=== PATIENT | male | born 1950 | race Caucasian/White ===

== ENCOUNTER 2016-10-03 09:43 | Inpatient (IN) ==
[2016-10-07] MEDS ORDERED: predniSONE 10 MG TABLET PO SCH (17:20)
[2016-10-07] MEDS ORDERED: D5% in Water 1,000 ML IVC PRN (18:21)
[2016-10-07] MEDS ORDERED: Dextrose Gel 15 GM PO PRN ×2 (18:21)
[2016-10-07] MEDS ORDERED: *HR* Dextrose 50 % in Water (Syg) 50 ML SYRINGE IVP PRN (18:21)
[2016-10-07] MEDS ORDERED: Nitroglycerin 0.4 MG TAB.SUBL SL PRN (18:28)
[2016-10-07] MEDS ORDERED: Gabapentin 300 MG CAPSULE PO PRN (18:28)
[2016-10-07] MEDS ORDERED: Ipratropium/Albuterol Neb 3 ML IH PRN (18:28)
[2016-10-07] MEDS ORDERED: NON-FORMULARY MEDICATION 1 EACH EACH (Oxygen [Oxygen] 4 L) SCH (18:30)
[2016-10-07] MEDS ORDERED: Insulin LISPRO 300 UNITS/3 ML VIAL SQ ONE (18:54)
[2016-10-07] MEDS: Insulin LISPRO 300 UNITS/3 ML VIAL SQ SCH ×2 (18:57→22:10)
[2016-10-07] MEDS ORDERED: Insulin DETEMIR 100 UNIT/ML per UNIT SQ ONE ×2 (21:00)
[2016-10-07] MEDS: Furosemide 20 MG TABLET PO SCH (22:08)
[2016-10-07] MEDS: Colchicine 0.6 MG TABLET PO SCH (22:08)
[2016-10-07] MEDS: Budesonide/Formoterol 160/4.5 MDI IH SCH (22:10)
[2016-10-07 23:54] LABS: Bilirubin,Urine Negative (Negative); Blood,Urine Negative (Negative); Clarity,Urine Slightly Cloudy (Clear); Color,Urine Yellow (Yellow); Glucose,Urine (UA) 500 mg/dL (Normal); Ketones,Urine Negative (Negative); Leukocyte Esterase,Urine Negative (Negative); Nitrite,Urine Negative (Negative); PH,Urine 6.5 pH Units (5.0-8.0); Protein,Urine Negative (Neg-Trace); Specific Gravity,Urine 1.015 (1.010-1.025); Urobilinogen,Urine Normal (Normal)
[2016-10-08 05:39] LABS: BUN/Creatinine Ratio 26 (6-26); Blood Urea Nitrogen 24 mg/dL (8-26); Calcium 9.5 mg/dL (8.6-10.8); Carbon Dioxide 32 mEq/L (19-29); Chloride 98 mEq/L (98-109); Glucose 166 mg/dL (70-99); Osmolality,Calculated 306 (280-300); Potassium 3.9 mEq/L (3.5-4.5); Sodium 144 mEq/L (136-145); eGFR For African Americans > 60 (> 60); eGFR For Non-African Americans > 60 (> 60)
[2016-10-08 05:44] LABS: Basophils % 0.3 %; Eosinophils % 0.3 %; Hematocrit 35.8 % (37.5-50.1); Hemoglobin 11.3 g/dL (12.9-16.9); Immature Granulocytes % 2.3 % (0-4); Lymphocytes # 1.3 K/mcL (0.6-4.6); Lymphocytes % 19.6 %; Mean Corpuscular HGB Conc 31.6 g/dL (31.6-35.5); Mean Corpuscular Hemoglobin 27.6 pg (28.0-33.3); Mean Corpuscular Volume 87.3 fL (83.0-100.0); Mean Platelet Volume 10.8 fL (9.4-12.4); Monocytes # 0.4 K/mcL (0.0-1.3); Monocytes % 5.6 %; Neutrophils # 4.6 K/mcL (1.6-8.9); Platelet Count 305 K/mcL (140-400); Red Cell Distribution Width 17.7 % (11.5-14.5); Segmented Neutrophils % 71.9 %
[2016-10-08] MEDS: *HR* Enoxaparin 30 MG/0.3 ML SYRINGE SQ SCH (05:48)
[2016-10-08] MEDS: Insulin DETEMIR 100 UNIT/ML per UNIT SQ SCH ×2 (07:49→21:03)
[2016-10-08] MEDS: Isosorbide MONOnitrate (24 HR) 30 MG TAB.ER.24H PO SCH (07:50)
[2016-10-08] MEDS: Colchicine 0.6 MG TABLET PO SCH ×2 (07:50→21:02)
[2016-10-08] MEDS: metOLazone 5 MG TABLET PO SCH (07:50)
[2016-10-08] MEDS: predniSONE 10 MG TABLET PO SCH (07:50)
[2016-10-08] MEDS: Furosemide 20 MG TABLET PO SCH ×3 (07:51→21:01)
[2016-10-08] MEDS: Aspirin Enteric Coated 81 MG Tablet PO SCH (07:51)
[2016-10-08] MEDS: *HR* GlipiZIDE 5 MG TABLET PO SCH (07:51)
[2016-10-08] MEDS: *HR* Metformin 500 MG TABLET PO SCH ×2 (07:51→17:07)
[2016-10-08] MEDS: Diltiazem CD (24hr) 120 MG CAPSULE PO SCH (07:51)
[2016-10-08] MEDS: Budesonide/Formoterol 160/4.5 MDI IH SCH ×2 (07:56→21:04)
[2016-10-08] MEDS: Insulin LISPRO 300 UNITS/3 ML VIAL SQ SCH ×7 (07:57→21:02)
[2016-10-08] MEDS: *HR* OxyCODONE Immed Rel 5 MG TABLET PO PRN ×4 (08:31→21:01)
--- NOTE | 2016-10-08 11:25 | Internal Med History&Physical ---
Date of Encounter: 10/08/16 Time of Encounter: 15:45 Assessment and Plan (1) Physical deconditioning Current visit: Yes Status: Acute Here for pt,ot,rt (2) Diabetes mellitus type 2, uncontrolled Current visit: No Status: Chronic he is noncompliant at home with his insulin. he will often miss doses and estr[place] not follow a diet is on Levemir here with Humulin N check sliding scales every before meals and daily at bedtime and give sliding scale high dose as needed Qualifiers: Diabetes mellitus long term care phlebotomist insulin use: with long term care phlebotomist use Qualified Code( s): E11.65 - Type 2 diabetes mellitus with hyperglycemia; Z79.4 - intermediate ( current) use of insulin (3) DVT prophylaxis Current visit: No Status: Acute lovenox (4) CAD (coronary artery disease) Current visit: No Status: Chronic We will continue on his home medications he chronically has angina. Qualifiers: Coronary Disease-Associated Artery/Lesion type: [place] artery [place] vs. transplanted heart: [place] heart Associated angina: with stable angina Qualified Code(s): I25.118 - Atherosclerotic heart disease of [place] coronary artery with other forms of angina pectoris (5) Asthma with COPD (chronic obstructive pulmonary disease) Current visit: No Status: Chronic continue the oxygen, nebs, inhalers. he is on a prednisone taper (6) CHF (congestive heart failure) Current visit: No Status: Acute will continue with the diuretics. he takes lisinopril and metoprolol Qualifiers: Congestive heart failure type: combined Congestive heart failure chronicity : chronic Qualified Code(s): I50.42 - Chronic combined systolic (congestive) and diastolic (congestive) heart failure (7) Anemia Current visit: No Status: Acute stable will continue to follow continue the iron Qualifiers: Anemia type: unspecified type Qualified Code(s): D64.9 - Anemia, unspecified (8) HTN (hypertension) Current visit: No Status: Chronic will continue his home medication Qualifiers: Hypertension type: essential hypertension Qualified Code(s): I10 - Essential (primary) hypertension (9) Angina pectoris Current visit: No Status: Acute (10) Hyperlipidemia Current visit: No Status: Chronic Qualifiers: Hyperlipidemia type: mixed hyperlipidemia Qualified Code(s): E78.2 - Mixed hyperlipidemia (11) Atrial fibrillation Current visit: No Status: Chronic he remains in chronic afib despite the ablation. on metoprolol and diltiazem. he had a gi bleed on anticoagulation Qualifiers: Atrial fibrillation type: chronic Qualified Code(s): I48.2 - Chronic atrial fibrillation (12) Morbid obesity with BMI of 45.0-49.9, adult Current visit: No Status: Chronic (13) Gouty arthritis Current visit: No Status: Acute he continues iwth the allopurinol and now is on a prednisone taper and oxycodone Internal Medicine - H&P: HPI Chief complaint: weak Admitted From: Hospital to Hospital Transfer Plans for Post Hospital Care: Home History of present illness: Mr. Anguiano is a 66 year old male The past medical history of CHF COPD gout type 2 diabetes that is uncontrolled presents to [facility] for rehabilitation from [facility]. He was hospitalized there for an acute gout attack that made it impossible for him to walk he could not get up he got deconditioning he became very weak is afraid she could not care for him at home she was worried he would fall he was having a lot of difficulty getting up and ambulating. He has come here for rehabilitation. He is short of breath on oxygen chronically his breathing is not too bad right now he always has angina that has not been too bad right now his gout is getting better today it has improved his feet are still sore but he can move his left arm much better than he could prior. Is looking forward to getting home. He does not have a cough that he usually does but there is not one now. Sitting on the edge of his bed he is alert he is dressed. Past Med Surg Social Fam HX - Past Medical History Medical history: arthritis (osteo and gout), atrial fibrillation (s/p ablation but afib persists), CHF, COPD, coronary artery disease, diabetes, GERD, GI bleed (on xarelto), hyperlipidemia, hypertension, myocardial infarction, osteoporosis, venous stasis, valvular heart disease, other (anemia) Psychiatric history: anxiety, depression - Past Surgical History Surgical History: angioplasty/stent (stents 2008, 2006), cataract (left 09/2013) , herniorrhaphy (bilateral inguinal 1969, umbilical 08/22), knee replacement ( left 2005, right 2006), other (cardiac ablation for afib 01/09/16, colonoscopy , 08/01/12) - Social History Smoking Status: Never smoker Smokeless Tobacco Status: No Alcohol use: none Drug use: none - Family History Sister Living Status: Still Living Mother Living Status: Still Living Hx Family Cardiac Disorders: Yes (htn,cad, lipid) Hx Family Neurologic Disorders: Yes (alzheimers) Father Living Status: Age at : 86 Cause of : aneurism Hx Family Cardiac Disorders: Yes (cad) Hx Family Respiratory Disorders: Yes Hx Family Cancer: Yes (colon) Hx Family GI Disorders: Yes Hx Family Endocrine Disorder: No Hx Family Medical Disorders: Yes (aneurism) Internal Medicine - H&P: Meds Insulin Human Regular [HumuLIN R] 40 unit SQ 0800,1700 #0 MDD With Breakfast and Dinner 09/12/15 [History] Isosorbide MONOnitrate (24 HR) [Imdur] 30 mg PO DAILY #0 09/12/15 [History] Ferrous Sulfate [Iron Supplement] 325 mg PO TID 12/25/15 [History] Aspirin [Lo-Dose Aspirin EC] 81 mg PO DAILY 03/22/16 [History] Glucagon,Human Recombinant [Glucagon Emergency Kit] 1 mg SQ DAILY PRN 03/22/16 [ History] Insulin NPH/REG 70/30 [HumuLIN 70/30 VIAL] 80 unit SQ BIDWM 03/22/16 [History] Budesonide/Formoterol 160/4.5 [Symbicort 160/4.5] 2 puff IH BIDR 05/17/16 [ History] Diltiazem CD (24hr) [Cardizem CD] 120 mg PO DAILY 05/17/16 [History] Gabapentin [Neurontin] 300 mg PO TID PRN 05/17/16 [History] Metoprolol [Lopressor] 50 mg PO BID 05/17/16 [History] Nitroglycerin [Nitrostat] 0.4 mg SL Q5M PRN 05/17/16 [History] Pantoprazole Sodium [Protonix] 40 mg PO DAILY 05/17/16 [History] Potassium Chloride [K-Tab ER] 20 meq PO TID 05/17/16 [History] glipiZIDE [Glipizide] 10 mg PO DAILY 05/17/16 [History] metFORMIN [Glucophage] 500 mg PO BIDWM 05/17/16 [History] metOLazone [Metolazone] 10 mg PO DAILY 05/17/16 [History] Buspirone HCl [Buspar] 10 mg PO BID 08/06/16 [History] Montelukast Sodium [Singulair] 10 mg PO HS 08/06/16 [History] Oxygen 4 l .ROUTE AD 09/18/16 [History] Atorvastatin [Lipitor] 80 mg PO HS tablet 09/21/16 [Rx] Lisinopril [Zestril] 2.5 mg PO DAILY 09/28/16 [History] Albuterol Sulfate [Albuterol Inhaler] 2 puff IH Q4H 09/29/16 [History] Ipratropium/Albuterol Neb [Duoneb] 3 ml IH Q4HR PRN 09/29/16 [History] Allopurinol [Zyloprim 100 MG] 100 mg PO DAILY #30 tablet 10/07/16 [Rx] Colchicine [Colcrys] 0.6 mg PO BID #30 tablet 10/07/16 [Rx] Furosemide [Lasix] 80 mg PO TID 10/07/16 [History] Insulin DETEMIR [Levemir] 40 unit SQ BID 10/07/16 [History] Insulin LISPRO [HumaLOG] 10 units SQ TIDWM 10/07/16 [History] OxyCODONE Immed Rel [Roxicodone 5 MG] 5 mg PO Q4H PRN #18 tablet 10/07/16 [Rx] predniSONE [PredniSONE] See Taper PO TAPER #9 tablet 10/07/16 [Rx] Allergies No Known Allergies Allergy (Verified 10/07/16 17:05) All Systems PM: A 10-system review of systems was performed and is negative for pertinent findings except as documented above in the HPI. - Constitutional Constitutional: fatigue, weakness (generalized), no fever(s), no falls - EENT Eyes: no change in vision - Cardiovascular Cardiovascular ROS IM: chest pain, dyspnea (it is better than prior), irregular heart rhythm, lightheadedness, palpitations - Respiratory Respiratory: cough (barely any just once lastnight, he usually has one), no wheezing - Gastrointestinal Gastrointestinal: bloating, no hematochezia, no melena, no nausea, no vomiting ( but he usually will have emesis and nausea) - Genitourinary Genitourinary ROS male: no dysuria, no hematuria - Musculoskeletal Musculoskeletal ROS IM: muscle weakness, numbness (chronic of his feet) - Neurological Neurological ROS: abnormal gait (hard to walk) - Constitutional Vitals: Temp Pulse Resp BP Pulse Ox 98.3 F 68 16 133/75 96 10/08/16 07:00 10/08/16 07:00 10/08/16 07:00 10/08/16 07:00 10/08/16 07:00 General appearance: Present: A&O X 3. Absent: no acute distress - Head Head exam: Present: atraumatic, normocephalic - Neck Neck exam general surgery: Present: supple, trachea midline. Absent: lymphadenopathy - Respiratory Respiratory exam: Present: wheezes (baseline) - Cardiovascular Cardiovascular exam: Present: irregular rhythm - GI/Abdominal GI/Abdominal exam: Present: distended, normal bowel sounds. Absent: tenderness , no peritoneal signs - Extremities Exam Extremities exam: Present: pedal edema (but improved over baseline. he has kenyatta hose on), tenderness (ankles bilateral), warm - Skin Skin exam: Present: dry, warm. Absent: rash Internal Med - H&P Results - Labs CBC & Chem 7: 10/08/16 05:20 10/08/16 05:20 Labs: Short CBC 10/08/16 Range/Units 05:20 WBC 6.4 (4.3-11.1) K/mcL Hgb 11.3 L (12.9-16.9) g/dL Hct 35.8 L (37.5-50.1) % Plt Count 305 (140-400) K/mcL Neutrophils # 4.6 (1.6-8.9) K/mcL BMP 10/08/16 05:20 Sodium 144 Potassium 3.9 Chloride 98 Carbon Dioxide 32 H BUN 24 Creatinine 0.94 Glucose 166 H Calcium 9.5 Urine 10/07/16 Range/Units 19:25 Urine Color Yellow (Yellow) Urine Clarity Slightly Cloudy A (Clear) Urine pH 6.5 (5.0-8.0) pH Units Ur Specific [place] 1.015 (1.010-1.025) Urine Protein Negative (Neg-Trace) mg/dL Urine Glucose (UA) 500 H (Normal) mg/dL - VTE Documentation of Mechanical Device: Graduated compression elastic hosiery
[2016-10-09] MEDS: *HR* Enoxaparin 30 MG/0.3 ML SYRINGE SQ SCH (06:29)
[2016-10-09] MEDS: Insulin LISPRO 300 UNITS/3 ML VIAL SQ SCH ×7 (07:58→20:46)
[2016-10-09] MEDS: *HR* GlipiZIDE 5 MG TABLET PO SCH (08:14)
[2016-10-09] MEDS: Colchicine 0.6 MG TABLET PO SCH ×2 (08:14→20:44)
[2016-10-09] MEDS: Isosorbide MONOnitrate (24 HR) 30 MG TAB.ER.24H PO SCH (08:14)
[2016-10-09] MEDS: Diltiazem CD (24hr) 120 MG CAPSULE PO SCH (08:14)
[2016-10-09] MEDS: *HR* OxyCODONE Immed Rel 5 MG TABLET PO PRN (08:14)
[2016-10-09] MEDS: Furosemide 20 MG TABLET PO SCH ×3 (08:15→20:48)
[2016-10-09] MEDS: predniSONE 10 MG TABLET PO SCH (08:15)
[2016-10-09] MEDS: *HR* Metformin 500 MG TABLET PO SCH ×2 (08:15→17:15)
[2016-10-09] MEDS: Budesonide/Formoterol 160/4.5 MDI IH SCH ×2 (08:15→20:47)
[2016-10-09] MEDS: metOLazone 5 MG TABLET PO SCH (08:15)
[2016-10-09] MEDS: Aspirin Enteric Coated 81 MG Tablet PO SCH (08:15)
[2016-10-09] MEDS: Insulin DETEMIR 100 UNIT/ML per UNIT SQ SCH ×2 (08:16→20:44)
--- NOTE | 2016-10-09 11:58 | Internal Med Progress Note ---
Date of Encounter: 10/09/16 Time of Encounter: 13:33 - Assessment and plan (1) Physical deconditioning Current Visit: Yes Status: Acute Assessment and plan: here for pt,ot,rt. improving likely d/c tomorrow (2) Diabetes mellitus type 2, uncontrolled Current Visit: No Status: Chronic Assessment and plan: his sugars are better with watching his diet and taking his insulin. he misses a lot of doses at home Qualifiers: Diabetes mellitus complication detail: with nephropathy Diabetes mellitus assistant terminal manager insulin use: with mcc use Qualified Code(s): E11.21 - Type 2 diabetes mellitus with diabetic nephropathy; E11.65 - Type 2 diabetes mellitus with hyperglycemia; Z79.4 - half-way (current) use of insulin (3) DVT prophylaxis Current Visit: No Status: Acute Assessment and plan: lovenox and kenyatta hose and ambulation (4) CAD (coronary artery disease) Current Visit: No Status: Chronic Assessment and plan: stable continue his oxygen and home imdur, metoprolol, acei, asa Qualifiers: Coronary Disease-Associated Artery/Lesion type: [place] artery [place] vs. transplanted heart: [place] heart Associated angina: with stable angina Qualified Code(s): I25.118 - Atherosclerotic heart disease of [place] coronary artery with other forms of angina pectoris (5) Asthma with COPD (chronic obstructive pulmonary disease) Current Visit: No Status: Chronic Assessment and plan: stable. cont nebs as needed, oxygen, mid. he is weaning down off the steroids for his gout (6) CHF (congestive heart failure) Current Visit: No Status: Acute Assessment and plan: he is doing better with watching his i and o and limiting fluids in the hospital. he is also getting all his medication, the betablocker, acei, lasix and metolglizone Qualifiers: Congestive heart failure type: combined Congestive heart failure chronicity : chronic Qualified Code(s): I50.42 - Chronic combined systolic (congestive) and diastolic (congestive) heart failure (7) Anemia Current Visit: No Status: Acute Assessment and plan: stable, continue the iron tid Qualifiers: Anemia type: unspecified type Qualified Code(s): D64.9 - Anemia, unspecified (8) HTN (hypertension) Current Visit: No Status: Chronic Assessment and plan: stable on home medication Qualifiers: Hypertension type: essential hypertension Qualified Code(s): I10 - Essential (primary) hypertension (9) Angina pectoris Current Visit: No Status: Acute (10) Hyperlipidemia Current Visit: No Status: Chronic Assessment and plan: continue statin Qualifiers: Hyperlipidemia type: mixed hyperlipidemia Qualified Code(s): E78.2 - Mixed hyperlipidemia (11) Atrial fibrillation Current Visit: No Status: Chronic Assessment and plan: s/p ablation but still in afib. on diltiazem, metoprolol, asa. he is not on other anticoagulation due to a gi bleed with it Qualifiers: Atrial fibrillation type: chronic Qualified Code(s): I48.2 - Chronic atrial fibrillation (12) Morbid obesity with BMI of 45.0-49.9, adult Current Visit: No Status: Chronic Assessment and plan: he is not compliant with diet and excercise (13) Gouty arthritis Current Visit: No Status: Acute Assessment and plan: improving. he is weaning the steroids. he is taking the allopurinol and colchicine - Subjective Interval history: he has been walking with the walker. will fatigue when he is not using it. went up 4 stairs. likely d/c tomorrow. his sugars are running well with watching his diet here and not missing medication doses. also the same with the chf. gout is better. ambulating better. breathing better, - Constitutional Vitals: Temp Pulse Resp BP Pulse Ox 98.8 F 82 18 115/71 96 10/09/16 07:08 10/09/16 07:08 10/09/16 07:08 10/09/16 07:08 10/09/16 07:08 General appearance: Present: A&O X 3. Absent: no acute distress - Head Head exam: Present: atraumatic, normocephalic - Neck Neck exam general surgery: Present: supple, trachea midline. Absent: tenderness - Respiratory Respiratory exam: Present: prolonged expiratory phase - Cardiovascular Cardiovascular exam: Present: irregular rhythm - GI/Abdominal GI/Abdominal exam: Present: distended, normal bowel sounds, no peritoneal signs. Absent: guarding, tenderness - Extremities Exam Extremities exam: Present: pedal edema (much improved with the kenyatta hose on) - Skin Skin exam: Present: dry, warm Internal Medicine: Result - Labs CBC & Chem 7: 10/08/16 05:20 10/08/16 05:20 - VTE Documentation of Mechanical Device: Graduated compression elastic hosiery Consult Discharge Plan - Plan Referrals: Mildred Ernandez MD [Primary Care Provider] -
--- NOTE | 2016-10-09 12:20 | Physical Med Progress Note ---
Date of Encounter: 10/09/16 Time of Encounter: 12:18 Physical Medicine-PN: Subj Interval history: PMR PCC Note Patient admitted following bilateral tka. He does well ambulating with a walker -his endurance is limited without a walker. He is able to ambulate 250 feet before he becomes fatigued. He is doing well with ADLs. Working on energy conservation. Patient is currently set up for all ADLs. He will require a shower seat at discharge. Plan for discharge to home 10/10/16 with home health PT. - Constitutional Vitals: Vital Signs Temp Pulse Resp BP Pulse Ox 10/09/16 07:08 98.8 F 82 18 115/71 96 10/09/16 04:00 98.2 F 70 20 102/65 94 10/08/16 19:17 97.5 F L 81 20 108/70 94 Intake and Output 10/08/16 10/09/16 10/09/16 23:59 07:59 15:59 Intake Total 240 / 240 300 / 300 730 / 730 Output Total 1250 / 1250 450 / 450 Balance -1010 / -1010 -150 / -150 730 / 730 Intake: Oral 240 / 240 300 / 300 730 / 730 Output: Urine 1250 / 1250 450 / 450 Other: Meal Dinner Breakfast Percent of Meal Consumed 90% 100% # Voids 1 1 1 Weight 122.062 kg Blood Glucose* 263 89 111 Patient Weight 10/09/16 23:59 Weight 122.062 kg Physical Medicine-PN: Obj Data - Labs CBC & Chem 7: 10/08/16 05:20 10/08/16 05:20 Labs: Laboratory Results - last 24 hr 10/08/16 10/08/16 10/08/16 07:31 11:04 16:35 POC Glucose 166 H 154 H 214 H 10/08/16 10/09/16 10/09/16 20:08 06:38 11:29 POC Glucose 263 H 89 111 H - VTE Documentation of Mechanical Device: Graduated compression elastic hosiery Consult Discharge Plan - Plan Referrals: Mildred Ernandez MD [Primary Care Provider] -
--- NOTE | 2016-10-09 13:41 | Physician Discharge Referral ---
Home Health/Hosp Referral Info Transfer to: Home Health Provider in Charge Post Discharge: PCP - Diagnosis (1) Physical deconditioning Priority: Primary Status: Acute (2) Diabetes mellitus type 2, uncontrolled Priority: Secondary Status: Chronic (3) DVT prophylaxis Priority: Secondary Status: Acute (4) CAD (coronary artery disease) Priority: Secondary Status: Chronic (5) Asthma with COPD (chronic obstructive pulmonary disease) Priority: Secondary Status: Chronic (6) CHF (congestive heart failure) Priority: Secondary Status: Acute (7) Anemia Priority: Secondary Status: Acute (8) HTN (hypertension) Priority: Secondary Status: Chronic (9) Angina pectoris Priority: Secondary Status: Acute (10) Hyperlipidemia Priority: Secondary Status: Chronic (11) Atrial fibrillation Priority: Secondary Status: Chronic (12) Morbid obesity with BMI of 45.0-49.9, adult Priority: Secondary Status: Chronic (13) Gouty arthritis Priority: Secondary Status: Acute - Respiratory Orders Smoking Cessation: Smoking cessation has been advised. For more information, call the [place] Tobacco Quit Line at 3-057-TRWV-NOW. - Transfer Medications Home Medications: Insulin Human Regular [HumuLIN R] 40 unit SQ 0800,1700 #0 MDD With Breakfast and Dinner 09/12/15 [History] Isosorbide MONOnitrate (24 HR) [Imdur] 30 mg PO DAILY #0 09/12/15 [History] Ferrous Sulfate [Iron Supplement] 325 mg PO TID 12/25/15 [History] Aspirin [Lo-Dose Aspirin EC] 81 mg PO DAILY 03/22/16 [History] Insulin NPH/REG 70/30 [HumuLIN 70/30 VIAL] 80 unit SQ BIDWM 03/22/16 [History] Budesonide/Formoterol 160/4.5 [Symbicort 160/4.5] 2 puff IH BIDR 05/17/16 [ History] Diltiazem CD (24hr) [Cardizem CD] 120 mg PO DAILY 05/17/16 [History] Gabapentin [Neurontin] 300 mg PO TID PRN 05/17/16 [History] Metoprolol [Lopressor] 50 mg PO BID 05/17/16 [History] Nitroglycerin [Nitrostat] 0.4 mg SL Q5M PRN 05/17/16 [History] Pantoprazole Sodium [Protonix] 40 mg PO DAILY 05/17/16 [History] Potassium Chloride [K-Tab ER] 20 meq PO TID 05/17/16 [History] glipiZIDE [Glipizide] 10 mg PO DAILY 05/17/16 [History] metFORMIN [Glucophage] 500 mg PO BIDWM 05/17/16 [History] metOLazone [Metolazone] 10 mg PO DAILY 05/17/16 [History] Buspirone HCl [Buspar] 10 mg PO BID 08/06/16 [History] Montelukast Sodium [Singulair] 10 mg PO HS 08/06/16 [History] Oxygen 4 l .ROUTE AD 09/18/16 [History] Atorvastatin [Lipitor] 80 mg PO HS tablet 09/21/16 [Rx] Lisinopril [Zestril] 2.5 mg PO DAILY 09/28/16 [History] Albuterol Sulfate [Albuterol Inhaler] 2 puff IH Q4H 09/29/16 [History] Ipratropium/Albuterol Neb [Duoneb] 3 ml IH Q4HR PRN 09/29/16 [History] Allopurinol [Zyloprim 100 MG] 100 mg PO DAILY #30 tablet 10/07/16 [Rx] Colchicine [Colcrys] 0.6 mg PO BID #30 tablet 10/07/16 [Rx] Furosemide [Lasix] 80 mg PO TID 10/07/16 [History] Insulin LISPRO [HumaLOG] 10 units SQ TIDWM 10/07/16 [History] OxyCODONE Immed Rel [Roxicodone 5 MG] 5 mg PO Q4H PRN #18 tablet 10/07/16 [Rx] predniSONE [PredniSONE] See Taper PO TAPER #9 tablet 10/07/16 [Rx] predniSONE [PredniSONE] 20 mg PO DAILY tablet 10/09/16 [Rx] predniSONE [PredniSONE] 20 mg PO DAILY tablet 10/09/16 [Rx] Allergies/Adverse Reactions: Allergies No Known Allergies Allergy (Verified 10/07/16 17:05) Certification: Further, I certify that my clinical findings support that this patient is homebound (i.e. absences from home require considerable and taxing effort and are for medical reasons or yazidism services or infrequently or short duration when for other reasons) because: frequent hospitalization, severe copd and chf and gout. uses walker, has oxygen Homebound Reason: Patient requires assistance of a person or device to safely leave home (needs walker and oxygen), Leaving home requires considerable and taxing effort due to condition (needs walker a nd oxygen) Attestation: My signature below is to certify that this patient is under my care and that I, or nurse practitioner, or a physician's life science research assistant working with me, has a face-to -face encounter with this patient.
--- NOTE | 2016-10-09 13:45 | Discharge Summary ---
Date of Encounter: 10/10/16 Time of Encounter: 08:15 - Discharge Diagnosis (1) Physical deconditioning Priority: Primary Status: Acute Comments: He came for physical therapy occupational therapy rt he completed his goals he was discharged home with home health in a stable condition to his home environment (2) Diabetes mellitus type 2, uncontrolled Priority: Secondary Status: Chronic Comments: His sugars were under control once his diet was controlled and he did not miss any doses of his insulin. discussed with him at length the importance of making sure that he took his insulin on a regular basis and did not skip any doses also discussed importance of controlling his diet. Qualifiers: Diabetes mellitus complication detail: with nephropathy Diabetes mellitus joint terminal attack controller insulin use: with joint terminal attack controller use Qualified Code(s): E11.21 - Type 2 diabetes mellitus with diabetic nephropathy; E11.65 - Type 2 diabetes mellitus with hyperglycemia; Z79.4 - joint terminal attack controller (current) use of insulin (3) DVT prophylaxis Priority: Secondary Status: Acute Comments: Lanoxin BAM hose which really made a difference in his peripheral edema when he wore them. (4) CAD (coronary artery disease) Priority: Secondary Status: Chronic Comments: stable this admission Qualifiers: Coronary Disease-Associated Artery/Lesion type: [place] artery [place] vs. transplanted heart: [place] heart Associated angina: with stable angina Qualified Code(s): I25.118 - Atherosclerotic heart disease of [place] coronary artery with other forms of angina pectoris (5) Asthma with COPD (chronic obstructive pulmonary disease) Priority: Secondary Status: Chronic Comments: He was much better on his medications. He does not Take them at home. (6) CHF (congestive heart failure) Priority: Secondary Status: Acute Comments: He has been very stable on fluid restrictions following strict I's and O's taking his MARTINA inhibitor beta luisa Lasix and diuretics and not missing any doses. Several conversations at length about making sure that he did not miss any medications. Unfortunately he is not very compliant in his home environment. Qualifiers: Congestive heart failure type: combined Congestive heart failure chronicity : chronic Qualified Code(s): I50.42 - Chronic combined systolic (congestive) and diastolic (congestive) heart failure (7) Anemia Priority: Secondary Status: Acute Comments: Is been stable continue iron Qualifiers: Anemia type: unspecified type Qualified Code(s): D64.9 - Anemia, unspecified (8) HTN (hypertension) Priority: Secondary Status: Chronic Comments: has been stable on home medications Qualifiers: Hypertension type: essential hypertension Qualified Code(s): I10 - Essential (primary) hypertension (9) Angina pectoris Priority: Secondary Status: Acute (10) Hyperlipidemia Priority: Secondary Status: Chronic Comments: He has been taking medication Qualifiers: Qualified Code(s): E78.2 - Mixed hyperlipidemia (11) Atrial fibrillation Priority: Secondary Status: Chronic Comments: Rate controlled on diltiazem and metoprolol Qualifiers: Qualified Code(s): I48.2 - Chronic atrial fibrillation (12) Morbid obesity with BMI of 45.0-49.9, adult Priority: Secondary Status: Chronic (13) Gouty arthritis Priority: Secondary Status: Acute Comments: He will be sent home on a prednisone taper and oxycodone and allopurinol and colchicine - Discharge Medications Home Medications: Insulin Human Regular [HumuLIN R] 40 unit SQ 0800,1700 #0 MDD With Breakfast and Dinner 09/12/15 [History] Isosorbide MONOnitrate (24 HR) [Imdur] 30 mg PO DAILY #0 09/12/15 [History] Ferrous Sulfate [Iron Supplement] 325 mg PO TID 12/25/15 [History] Aspirin [Lo-Dose Aspirin EC] 81 mg PO DAILY 03/22/16 [History] Insulin NPH/REG 70/30 [HumuLIN 70/30 VIAL] 80 unit SQ BIDWM 03/22/16 [History] Budesonide/Formoterol 160/4.5 [Symbicort 160/4.5] 2 puff IH BIDR 05/17/16 [ History] Diltiazem CD (24hr) [Cardizem CD] 120 mg PO DAILY 05/17/16 [History] Gabapentin [Neurontin] 300 mg PO TID PRN 05/17/16 [History] Metoprolol [Lopressor] 50 mg PO BID 05/17/16 [History] Nitroglycerin [Nitrostat] 0.4 mg SL Q5M PRN 05/17/16 [History] Pantoprazole Sodium [Protonix] 40 mg PO DAILY 05/17/16 [History] Potassium Chloride [K-Tab ER] 20 meq PO TID 05/17/16 [History] glipiZIDE [Glipizide] 10 mg PO DAILY 05/17/16 [History] metFORMIN [Glucophage] 500 mg PO BIDWM 05/17/16 [History] metOLazone [Metolazone] 10 mg PO DAILY 05/17/16 [History] Buspirone HCl [Buspar] 10 mg PO BID 08/06/16 [History] Montelukast Sodium [Singulair] 10 mg PO HS 08/06/16 [History] Oxygen 4 l .ROUTE AD 09/18/16 [History] Atorvastatin [Lipitor] 80 mg PO HS tablet 09/21/16 [Rx] Lisinopril [Zestril] 2.5 mg PO DAILY 09/28/16 [History] Albuterol Sulfate [Albuterol Inhaler] 2 puff IH Q4H 09/29/16 [History] Ipratropium/Albuterol Neb [Duoneb] 3 ml IH Q4HR PRN 09/29/16 [History] Allopurinol [Zyloprim 100 MG] 100 mg PO DAILY #30 tablet 10/07/16 [Rx] Colchicine [Colcrys] 0.6 mg PO BID #30 tablet 10/07/16 [Rx] Furosemide [Lasix] 80 mg PO TID 10/07/16 [History] Insulin LISPRO [HumaLOG] 10 units SQ TIDWM 10/07/16 [History] OxyCODONE Immed Rel [Roxicodone 5 MG] 5 mg PO Q4H PRN #18 tablet 10/07/16 [Rx] predniSONE [PredniSONE] See Taper PO TAPER #9 tablet 10/07/16 [Rx] predniSONE [PredniSONE] 20 mg PO DAILY tablet 10/09/16 [Rx] predniSONE [PredniSONE] 20 mg PO DAILY tablet 10/09/16 [Rx] Allergies/Adverse Reactions: Allergies No Known Allergies Allergy (Verified 10/07/16 17:05) Date of admission: 10/07/16 16:37 Primary care physician: Mildred Ernandez, Consults: 10/07/16 17:10 Consult to Occupational Therapy [CONS] Routine Comment: Evaluate, develop and implement POC Reason for Consult: evaluate and treat Consult to Physical Therapy [CONS] Routine Comment: Evaluate, develop and implement POC Reason for Consult: evaluate and treat Consult to Recreational Therapy [CONS] Routine Comment: Evaluate, develop and implement POC Consult to Triage Licensed Practical Nurse [CONS] Routine Reason for SW Consult: evaluate for DME 10/07/16 17:13 Consult to Triage Licensed Practical Nurse [CONS] Routine Reason for SW Consult: family has questions about home health upon discharge 10/07/16 18:40 Consult to Respiratory Therapy [CONS] Routine Reason for Consult: COPD, bipap Call Completed: No Anticipated date of discharge: 10/10/16 - Patient Status Disposition: Home Health Service Condition: Fair Functional capacity at discharge: uses cane/walker Overall status at discharge: patient is progressing back to baseline - Discharge Instructions Instructions: Heart Failure (DC), Atrial Fibrillation (DC), Diabetes Mellitus Type 2 in Adults (DC), Chronic Obstructive Pulmonary Disease (DC), Chronic Hypertension (DC), Anemia (GEN) Follow Up With: Mildred Ernandez MD [Primary Care Provider] - 10/17/16 10:30 am - Diet and Activity Activity: ambulate only with your walker, as per physical therapy, increase activity as tolerated, wear oxygen at all times Hospital course: Mr. Anguiano is a 66 year old male With a past medical history of CHF COPD and gout who presented to [facility] with an acute gouty arthritis attack he became deconditioned he was unable to move he was sent here for rehabilitation he saw PT OT RT he progressed to his goals he was ambulating with a walker he was determined to be safe at home he was discharged home on a prednisone taper allopurinol and colchicine and oxycodone for the gout. His CHF has been under remarkable control with limiting fluids daily weights and with consistent use of the Lasix and Zaroxolyn metoprolol and lisinopril. At home he misses a lot of doses of his medications and this definitely affects his control. Also his sugars have been under good control here with diet control and with no missed doses of insulin. We have discussed at length that he needs to consistently take his medicine and not miss any doses because of the risk of rehospitalization. He voices understanding but I am not sure if this will happen as an outpatient or not. His A. fib has been rate controlled he is not anticoagulated due to a GI bleed . He will be going home with home health care - Time Spent with Patient Total time spent providing and/or coordinating discharge services: - Constitutional Vitals: Temp Pulse Resp BP Pulse Ox 98.8 F 82 18 115/71 96 10/09/16 07:08 10/09/16 07:08 10/09/16 07:08 10/09/16 07:08 10/09/16 07:08 General appearance: Present: A&O X 3. Absent: no acute distress - Head Head exam: Present: atraumatic, normocephalic - Neck Neck exam general surgery: Present: supple, trachea midline. Absent: lymphadenopathy - Respiratory Respiratory exam: Present: decreased breath sounds - Cardiovascular Cardiovascular exam: Present: irregular rhythm, systolic murmur - GI/Abdominal GI/Abdominal exam: Present: distended, normal bowel sounds. Absent: guarding, tenderness, no peritoneal signs - Extremities Exam Extremities exam: Present: pedal edema (much decreased), warm - Skin Skin exam: Present: dry, warm. Absent: rash - VTE Documentation of Mechanical Device: Graduated compression elastic hosiery
[2016-10-10] MEDS: *HR* Enoxaparin 30 MG/0.3 ML SYRINGE SQ SCH (05:45)
[2016-10-10 07:19] VITALS: BP 126/67
[2016-10-10] MEDS: Diltiazem CD (24hr) 120 MG CAPSULE PO SCH (08:16)
[2016-10-10] MEDS: *HR* Metformin 500 MG TABLET PO SCH (08:17)
[2016-10-10] MEDS: metOLazone 5 MG TABLET PO SCH (08:17)
[2016-10-10] MEDS: *HR* OxyCODONE Immed Rel 5 MG TABLET PO PRN (08:17)
[2016-10-10] MEDS: *HR* GlipiZIDE 5 MG TABLET PO SCH (08:18)
[2016-10-10] MEDS: Furosemide 20 MG TABLET PO SCH (08:18)
[2016-10-10] MEDS: Colchicine 0.6 MG TABLET PO SCH (08:18)
[2016-10-10] MEDS: Aspirin Enteric Coated 81 MG Tablet PO SCH (08:18)
[2016-10-10] MEDS: Isosorbide MONOnitrate (24 HR) 30 MG TAB.ER.24H PO SCH (08:18)
[2016-10-10] MEDS: Insulin LISPRO 300 UNITS/3 ML VIAL SQ SCH ×4 (08:24→12:09)
[2016-10-10] MEDS: Insulin DETEMIR 100 UNIT/ML per UNIT SQ SCH (08:30)
[2016-10-10] MEDS ORDERED: Ondansetron ODT 4 MG TAB.RAPDIS SL PRN (08:31)
[2016-10-10] MEDS ORDERED: predniSONE 10 MG TABLET PO SCH (09:00)
[2016-10-10] MEDS: predniSONE 10 MG TABLET PO SCH (09:05)
[2016-10-10] MEDS: Budesonide/Formoterol 160/4.5 MDI IH SCH (11:23)
== END 2016-10-10 15:40 | disposition home health service (06) | DRG 556 ==
LOC: INPGRE 10-07 16:37
PROVIDERS: ADMIT Family Medicine; ATTEND Family Medicine

== ENCOUNTER 2016-11-08 17:04 | Inpatient (IN) ==
--- NOTE | 2016-11-08 18:23 | Internal Med History&Physical ---
Date of Encounter: 11/08/16 Time of Encounter: 19:57 Assessment and Plan (1) Physical deconditioning Current visit: No Status: Acute he was transferred here from [facility]. he is here for pt, ot, rt. d/c will be when he is stable and safe at home (2) Gout attack Current visit: Yes Status: Acute will continue with the home allopurinol and colcrys. he does well in the hospital but is very noncompliant at home and usually will have flares when he is not taking his medication at home and not watching his diet. will wean the prednisone Qualifiers: Gout site: multiple sites Gout etiology: unspecified cause Qualified Code (s): M10.9 - Gout, unspecified (3) Atrial flutter Current visit: No Status: Chronic He is status post ablation for this he cannot tolerate anticoagulation he had a GI bleed on the relative. He remains in chronic A. fib despite the ablation. Rate Controlled on metoprolol Qualifiers: Atrial flutter type: unspecified Qualified Code(s): I48.92 - Unspecified atrial flutter (4) Diabetes mellitus type 2, uncontrolled Current visit: No Status: Chronic We will continue insulin and sliding scale and Accu-Cheks every before meals and daily at bedtime. He is very noncompliant with his diet at home and noncompliant with his insulin his sugars are usually 3-500 at home they usually are pretty decent inpatient. Qualifiers: Diabetes mellitus complication detail: with nephropathy Diabetes mellitus half-way insulin use: with entertainer or variety artist use Qualified Code(s): E11.21 - Type 2 diabetes mellitus with diabetic nephropathy; E11.65 - Type 2 diabetes mellitus with hyperglycemia; Z79.4 - FPC (current) use of insulin (5) DVT prophylaxis Current visit: No Status: Acute We will do BAM hose and Lovenox (6) CAD (coronary artery disease) Current visit: No Status: Chronic sTable continue current home medication. Qualifiers: Coronary Disease-Associated Artery/Lesion type: [place] artery [place] vs. transplanted heart: [place] heart Associated angina: with stable angina Qualified Code(s): I25.118 - Atherosclerotic heart disease of [place] coronary artery with other forms of angina pectoris (7) Asthma with COPD (chronic obstructive pulmonary disease) Current visit: No Status: Chronic Continue home medication he has trouble at home when he weaned steroids and when he does not take any of his inhalers at home and uses a woodstove to heat is house. (8) CHF (congestive heart failure) Current visit: No Status: Acute Continue beta luisa MARTINA inhibitor Lasix and Zaroxolyn Qualifiers: Congestive heart failure type: combined Congestive heart failure chronicity : chronic Qualified Code(s): I50.42 - Chronic combined systolic (congestive) and diastolic (congestive) heart failure (9) Anemia Current visit: No Status: Acute We will continue iron and keep track of his hemoglobin Qualifiers: Anemia type: unspecified type Qualified Code(s): D64.9 - Anemia, unspecified (10) HTN (hypertension) Current visit: No Status: Chronic Home medication. Qualifiers: Hypertension type: essential hypertension Qualified Code(s): I10 - Essential (primary) hypertension (11) Hyperlipidemia Current visit: No Status: Chronic Qualifiers: Hyperlipidemia type: mixed hyperlipidemia Qualified Code(s): E78.2 - Mixed hyperlipidemia (12) History of PTCA Current visit: No Status: Chronic (13) Iron deficiency anemia Current visit: No Status: Chronic Qualifiers: Iron deficiency anemia type: unspecified iron deficiency Qualified Code(s) : D50.9 - Iron deficiency anemia, unspecified (14) CKD (chronic kidney disease) Current visit: No Status: Chronic Repeat labs in the morning Qualifiers: Chronic kidney disease stage: stage 3 (moderate) Qualified Code(s): N18.3 - Chronic kidney disease, stage 3 (moderate) Internal Medicine - H&P: HPI Chief complaint: Here for rehabilitation Admitted From: Hospital to Hospital Transfer Plans for Post Hospital Care: Home History of present illness: Mr. Anguiano is a 66 year old male The past medical history of gout CHF COPD anemia chronic kidney disease and uncontrolled type 2 diabetes presents to [place] for rehabilitation. He came from [facility] where he was hospitalized for gout versus a possible septic joint. While he was there he did undergo aspiration and cultures did not grow anything. He did not have redness. Put on prednisone allopurinol colchicine. [facility] consulted a PT OT. His difficulty moving around he cannot get up and stand on his own history transferred here for rehabilitation until he was safe to go home and his home environment. He initially had some diarrhea on presentation to the emergency room. That resulted [facility] then he got constipated and they gave him medicine and is back to normal. His ankle still hurts his heart stand. That is limiting his mobility. His is not able to move him. Past Med Surg Social Fam HX - Past Medical History Medical history: arthritis (osteo and gout), atrial fibrillation (s/p ablation but still persists), CHF, COPD, coronary artery disease, diabetes (not controlled at all. he is noncompliant with medication and diet), GERD, GI bleed (while on xarelto), hyperlipidemia, hypertension, myocardial infarction, osteoporosis, venous stasis, valvular heart disease, other (anemia, gout) Psychiatric history: anxiety, depression - Past Surgical History Surgical History: angioplasty/stent (stents 2008, 2006), cataract (left 09/2013) , herniorrhaphy (bilateral inguinal 1969, umbilical 08/22), knee replacement ( left 2005, right 2006), other (cardiac ablation for afib 01/09/16, colonoscopy , 08/01/12) - Social History Smoking Status: Never smoker Smokeless Tobacco Status: No Alcohol use: none Drug use: none - Family History Sister Living Status: Still Living Mother Living Status: Still Living Hx Family Cardiac Disorders: Yes (htn,cad, lipid) Hx Family Neurologic Disorders: Yes (alzheimers) Father Living Status: Hx Family Cardiac Disorders: Yes (cad) Hx Family Respiratory Disorders: Yes Hx Family Cancer: Yes (colon) Hx Family GI Disorders: Yes Hx Family Endocrine Disorder: No Internal Medicine - H&P: Meds Insulin Human Regular [HumuLIN R] 40 unit SQ 0800,1700 #0 MDD With Breakfast and Dinner 09/12/15 [History] Isosorbide MONOnitrate (24 HR) [Imdur] 30 mg PO DAILY #0 09/12/15 [History] Ferrous Sulfate [Iron Supplement] 325 mg PO TID 12/25/15 [History] Aspirin [Lo-Dose Aspirin EC] 81 mg PO DAILY 03/22/16 [History] Insulin NPH/REG 70/30 [HumuLIN 70/30 VIAL] 80 unit SQ BIDWM 03/22/16 [History] Budesonide/Formoterol 160/4.5 [Symbicort 160/4.5] 2 puff IH BIDR 05/17/16 [ History] Diltiazem CD (24hr) [Cardizem CD] 120 mg PO DAILY 05/17/16 [History] Gabapentin [Neurontin] 300 mg PO TID PRN 05/17/16 [History] Metoprolol [Lopressor] 50 mg PO BID 05/17/16 [History] Nitroglycerin [Nitrostat] 0.4 mg SL Q5M PRN 05/17/16 [History] Pantoprazole Sodium [Protonix] 40 mg PO DAILY 05/17/16 [History] Potassium Chloride [K-Tab ER] 20 meq PO TID 05/17/16 [History] glipiZIDE [Glipizide] 10 mg PO DAILY 05/17/16 [History] metFORMIN [Glucophage] 500 mg PO BIDWM 05/17/16 [History] metOLazone [Metolazone] 10 mg PO DAILY 05/17/16 [History] Buspirone HCl [Buspar] 10 mg PO BID 08/06/16 [History] Montelukast Sodium [Singulair] 10 mg PO HS 08/06/16 [History] Oxygen 4 l .ROUTE AD 09/18/16 [History] Atorvastatin [Lipitor] 80 mg PO HS tablet 09/21/16 [Rx] Lisinopril [Zestril] 2.5 mg PO DAILY 09/28/16 [History] Albuterol Sulfate [Albuterol Inhaler] 2 puff IH Q4H 09/29/16 [History] Ipratropium/Albuterol Neb [Duoneb] 3 ml IH Q4HR PRN 09/29/16 [History] Allopurinol [Zyloprim 100 MG] 100 mg PO DAILY #30 tablet 10/07/16 [Rx] Colchicine [Colcrys] 0.6 mg PO BID #30 tablet 10/07/16 [Rx] Insulin LISPRO [HumaLOG] 10 units SQ TIDWM 10/07/16 [History] OxyCODONE Immed Rel [Roxicodone 5 MG] 5 mg PO Q4H PRN #18 tablet 10/07/16 [Rx] Furosemide [Lasix] 80 mg PO TID 11/08/16 [History] Allergies No Known Allergies Allergy (Verified 11/04/16 09:26) All Systems PM: A 10-system review of systems was performed and is negative for pertinent findings except as documented above in the HPI. - Constitutional Constitutional: fatigue, weakness (ankles), no chills, no fever(s) - Cardiovascular Cardiovascular ROS IM: irregular heart rhythm, palpitations, no chest pain, no dyspnea, no lightheadedness - Respiratory Respiratory: no cough, no dyspnea - Gastrointestinal Gastrointestinal: nausea (occ), no abdominal pain, no constipation, no diarrhea , no hematochezia, no loose stools, no vomiting - Genitourinary Genitourinary ROS male: no dysuria, no urinary frequency, no urinary incontinence - Musculoskeletal Musculoskeletal ROS IM: arthralgias - Integumentary Integumentary IM: no pruritus, no rash - Constitutional Vitals: Temp Pulse Resp BP Pulse Ox 97.7 F 73 18 153/98 95 11/08/16 16:45 11/08/16 16:45 11/08/16 16:45 11/08/16 16:45 11/08/16 16:45 General appearance: Present: A&O X 3, no acute distress, obese - Head Head exam: Present: atraumatic, normocephalic - Neck Neck exam general surgery: Present: supple, trachea midline. Absent: lymphadenopathy - Expanded Neck Exam Neck exam: Absent: carotid bruit - Respiratory Respiratory exam: Present: CTAB - Cardiovascular Cardiovascular exam: Present: irregular rhythm. Absent: JVD, systolic murmur - GI/Abdominal GI/Abdominal exam: Present: distended (but baseline), normal bowel sounds, soft , no peritoneal signs. Absent: tenderness - Extremities Exam Extremities exam: Present: normal capillary refill, pedal edema (of bilateral ankles, but legs look better than his normal). Absent: mottling - Expanded Lower Extremities Exam Ankle exam: Absent: full ROM (hurts to move his ankles) - Skin Skin exam: Present: dry, warm. Absent: rash
[2016-11-08] MEDS ORDERED: Gabapentin 100 MG CAPSULE PO PRN (19:07)
[2016-11-08] MEDS ORDERED: Nitroglycerin 0.4 MG TAB.SUBL SL PRN (19:07)
[2016-11-08] MEDS ORDERED: NON-FORMULARY MEDICATION 1 EACH EACH (Oxygen [Oxygen] 3 L) SCH (19:15)
[2016-11-08] MEDS ORDERED: Insulin DETEMIR 100 UNIT/ML per UNIT SQ ONE (21:45)
[2016-11-08] MEDS: Colchicine 0.6 MG TABLET PO SCH (22:52)
[2016-11-08] MEDS: Furosemide 40 MG TABLET PO SCH (22:53)
[2016-11-08] MEDS: Budesonide/Formoterol 160/4.5 MDI IH SCH (22:55)
[2016-11-08] MEDS: Gabapentin 100 MG CAPSULE PO SCH (23:01)
[2016-11-08 23:50] LABS: Bilirubin,Urine Negative (Negative); Blood,Urine Negative (Negative); Clarity,Urine Clear (Clear); Color,Urine Yellow (Yellow); Glucose,Urine (UA) 500 mg/dL (Normal); Ketones,Urine Negative (Negative); Leukocyte Esterase,Urine Negative (Negative); Nitrite,Urine Negative (Negative); Protein,Urine 30 mg/dL (Neg-Trace); Urobilinogen,Urine Normal (Normal)
[2016-11-09 05:07] LABS: Basophils % 0.3 %; Eosinophils % 0.5 %; Hematocrit 36.7 % (37.5-50.1); Hemoglobin 11.7 g/dL (12.9-16.9); Immature Granulocytes % 1.4 % (0-4); Lymphocytes # 1.5 K/mcL (0.6-4.6); Lymphocytes % 17.1 %; Mean Corpuscular HGB Conc 31.9 g/dL (31.6-35.5); Mean Corpuscular Hemoglobin 27.1 pg (28.0-33.3); Mean Corpuscular Volume 85.2 fL (83.0-100.0); Mean Platelet Volume 10.2 fL (9.4-12.4); Monocytes # 0.6 K/mcL (0.0-1.3); Monocytes % 6.6 %; Neutrophils # 6.5 K/mcL (1.6-8.9); Platelet Count 364 K/mcL (140-400); Red Blood Count 4.31 M/mcL (4.19-5.50); Red Cell Distribution Width 15.5 % (11.5-14.5); Segmented Neutrophils % 74.1 %
[2016-11-09 05:19] LABS: BUN/Creatinine Ratio 40 (6-26); Blood Urea Nitrogen 37 mg/dL (8-26); Calcium 9.2 mg/dL (8.6-10.8); Carbon Dioxide 34 mEq/L (19-29); Chloride 91 mEq/L (98-109); Glucose 123 mg/dL (70-99); Osmolality,Calculated 302 (280-300); Potassium 2.8 mEq/L (3.5-4.5); Sodium 141 mEq/L (136-145); eGFR For African Americans > 60 (> 60); eGFR For Non-African Americans > 60 (> 60)
[2016-11-09] MEDS ORDERED: *HR* Enoxaparin 30 MG/0.3 ML SYRINGE SQ SCH (06:00)
[2016-11-09] MEDS: *HR* OxyCODONE Immed Rel 5 MG TABLET PO PRN ×3 (07:47→17:41)
[2016-11-09] MEDS: Isosorbide MONOnitrate (24 HR) 30 MG TAB.ER.24H PO SCH (07:51)
[2016-11-09] MEDS: Furosemide 40 MG TABLET PO SCH ×3 (07:51→19:50)
[2016-11-09] MEDS: Ipratropium/Albuterol Neb 3 ML IH PRN ×2 (07:51→14:57)
[2016-11-09] MEDS: *HR* GlipiZIDE 5 MG TABLET PO SCH (07:52)
[2016-11-09] MEDS: predniSONE 10 MG TABLET PO SCH (07:52)
[2016-11-09] MEDS: *HR* Metformin 500 MG TABLET PO SCH ×2 (07:52→17:41)
[2016-11-09] MEDS: metOLazone 5 MG TABLET PO SCH (07:52)
[2016-11-09] MEDS: Colchicine 0.6 MG TABLET PO SCH ×2 (07:52→19:51)
[2016-11-09] MEDS: Gabapentin 100 MG CAPSULE PO SCH ×3 (07:52→19:51)
[2016-11-09] MEDS: Aspirin Enteric Coated 81 MG Tablet PO SCH (07:53)
[2016-11-09] MEDS: Diltiazem CD (24hr) 120 MG CAPSULE PO SCH (07:53)
[2016-11-09] MEDS ORDERED: REG SQ SCH (08:00)
[2016-11-09] MEDS ORDERED: Insulin LISPRO 300 UNITS/3 ML VIAL SQ SCH (08:00)
[2016-11-09] MEDS ORDERED: Insulin NPH/REG 70/30 100 UNIT/ML (x5UNIT) SQ SCH (08:00)
[2016-11-09] MEDS ORDERED: INSULIN NPH SQ SCH (08:00)
[2016-11-09] MEDS: Insulin LISPRO 300 UNITS/3 ML VIAL SQ SCH ×3 (08:02→17:42)
[2016-11-09] MEDS: Budesonide/Formoterol 160/4.5 MDI IH SCH ×2 (08:10→19:51)
[2016-11-09] MEDS ORDERED: Insulin DETEMIR 100 UNIT/ML per UNIT SQ ONE (09:00)
[2016-11-09] MEDS ORDERED: Isosorbide MONOnitrate (24 HR) 30 MG TAB.ER.24H PO SCH (09:00)
--- NOTE | 2016-11-09 11:21 | Internal Med Progress Note ---
Date of Encounter: 11/09/16 Time of Encounter: 11:15 (He) - Assessment and plan (1) Atrial fibrillation Current Visit: No Status: Chronic (2) CAD (coronary artery disease), [place] coronary artery Current Visit: No Status: Chronic (3) Type 2 diabetes mellitus Current Visit: No Status: Chronic Assessment and plan: Fingerstick glucose yesterday was 374, 73 this morning. We will continue insulin. (4) Iron deficiency anemia Current Visit: No Status: Chronic Assessment and plan: Hemoglobin is 11.7 which is stable for him. (5) COPD (chronic obstructive pulmonary disease) Current Visit: No Status: Acute Assessment and plan: At baseline currently by symptoms and exam. Qualifiers: COPD type: COPD with acute exacerbation Qualified Code(s): J44.1 - Chronic obstructive pulmonary disease with (acute) exacerbation (6) CKD (chronic kidney disease) Current Visit: No Status: Chronic Assessment and plan: Creatinine was normal on admission. Nonetheless we will try to avoid NSAIDs. BUN is elevated at 37. Qualifiers: Chronic kidney disease stage: stage 3 (moderate) Qualified Code(s): N18.3 - Chronic kidney disease, stage 3 (moderate) (7) Inflammatory arthritis Current Visit: No Status: Acute Assessment and plan: He continues with some breakthrough pain oxycodone. I added acetaminophen. (8) Physical deconditioning Current Visit: No Status: Acute Assessment and plan: We will pursue therapy with him with a goal of him being eventually discharged home. (9) Hypokalemia Current Visit: No Status: Acute Assessment and plan: His potassium is low, possibly because he has not been compliant with his oral replacement in the past. Also he's been started back on usual doses of insulin a Lasix which may have dropped his potassium. He says he's had IV potassium in the past to really arms his pain and he doesn't want to get that. I will increase his oral supplementation at this time. I'll check his magnesium level. - Time Spent With Patient Greater than 35 minutes - Constitutional Vitals: Temp Pulse Resp BP Pulse Ox 97.9 F 64 16 125/78 94 11/09/16 07:16 11/09/16 07:16 11/09/16 07:16 11/09/16 07:16 11/09/16 07:16 General appearance: Present: A&O X 3, morbidly obese, pleasant, no acute distress, answers questions appropriately - Respiratory Respiratory exam: Present: CTAB. Absent: accessory muscle use, rales, respiratory distress, rhonchi, wheezes, tachypnea - Cardiovascular Cardiovascular exam: Present: RRR, +S1, +S2. Absent: diastolic murmur, gallop, rubs, systolic murmur - GI/Abdominal GI/Abdominal exam: Present: soft, no peritoneal signs. Absent: distended, tenderness - Extremities Exam Extremities exam: Present: warm, radial pulses palpable and symetrical. Absent : calf tenderness (There is no redness, swelling, or warmth of the joints in the upper and lower extremities at the time of my exam. ), cyanotic, pedal edema Internal Medicine: Result - Labs CBC & Chem 7: 11/09/16 04:40 11/09/16 04:40 Labs: Short CBC 11/09/16 Range/Units 04:40 WBC 8.8 (4.3-11.1) K/mcL Hgb 11.7 L (12.9-16.9) g/dL Hct 36.7 L (37.5-50.1) % Plt Count 364 (140-400) K/mcL Neutrophils # 6.5 (1.6-8.9) K/mcL BMP 11/09/16 04:40 Sodium 141 Potassium 2.8 L Chloride 91 L Carbon Dioxide 34 H BUN 37 H Creatinine 0.93 Glucose 123 H Calcium 9.2 Urine 11/08/16 Range/Units 23:35 Urine Color Yellow (Yellow) Urine Clarity Clear (Clear) Urine pH 7.0 (5.0-8.0) pH Units Ur Specific [place] 1.010 (1.010-1.025) Urine Protein 30 H (Neg-Trace) mg/dL Urine Glucose (UA) 500 H (Normal) mg/dL - VTE Documentation of Mechanical Device: Graduated compression elastic hosiery (BAM hose as tolerated and Lovenox) Deep Vein Thrombosis/Pulmonary Embolism Present on Admission: No Consult Discharge Plan - Plan Referrals: Mildred Ernandez MD [Primary Care Provider] -
[2016-11-09] MEDS: Insulin DETEMIR 100 UNIT/ML X5UNITS SQ SCH (19:56)
[2016-11-10] MEDS: *HR* Enoxaparin 40 MG/0.4 ML SYRINGE SQ SCH (05:06)
[2016-11-10 05:23] LABS: BUN/Creatinine Ratio 43 (6-26); Blood Urea Nitrogen 46 mg/dL (8-26); Carbon Dioxide 33 mEq/L (19-29); Chloride 93 mEq/L (98-109); Glucose 138 mg/dL (70-99); Osmolality,Calculated 306 (280-300); Sodium 141 mEq/L (136-145); eGFR For African Americans > 60 (> 60); eGFR For Non-African Americans > 60 (> 60)
[2016-11-10] MEDS: *HR* OxyCODONE Immed Rel 5 MG TABLET PO PRN ×3 (07:37→21:14)
[2016-11-10] MEDS: metOLazone 5 MG TABLET PO SCH (08:40)
[2016-11-10] MEDS: predniSONE 10 MG TABLET PO SCH (08:40)
[2016-11-10] MEDS: Isosorbide MONOnitrate (24 HR) 30 MG TAB.ER.24H PO SCH (08:40)
[2016-11-10] MEDS: Diltiazem CD (24hr) 120 MG CAPSULE PO SCH (08:41)
[2016-11-10] MEDS: Aspirin Enteric Coated 81 MG Tablet PO SCH (08:42)
[2016-11-10] MEDS: Furosemide 40 MG TABLET PO SCH ×3 (08:42→21:14)
[2016-11-10] MEDS: Gabapentin 100 MG CAPSULE PO SCH ×3 (08:42→21:15)
[2016-11-10] MEDS: *HR* GlipiZIDE 5 MG TABLET PO SCH (08:42)
[2016-11-10] MEDS: *HR* Metformin 500 MG TABLET PO SCH ×2 (08:42→17:04)
[2016-11-10] MEDS: Insulin DETEMIR 100 UNIT/ML X5UNITS SQ SCH ×2 (08:43→21:14)
[2016-11-10] MEDS: Insulin LISPRO 300 UNITS/3 ML VIAL SQ SCH ×3 (08:43→17:06)
[2016-11-10] MEDS: Colchicine 0.6 MG TABLET PO SCH ×2 (08:43→21:14)
[2016-11-10] MEDS: Budesonide/Formoterol 160/4.5 MDI IH SCH ×2 (10:17→21:14)
--- NOTE | 2016-11-10 15:14 | Internal Med Progress Note ---
Date of Encounter: 11/10/16 Time of Encounter: 15:10 - Assessment and plan (1) Atrial fibrillation Current Visit: No Status: Chronic Assessment and plan: Rate is controlled. Continue as at present. (2) CAD (coronary artery disease), [place] coronary artery Current Visit: No Status: Chronic Assessment and plan: He denies symptoms. (3) Type 2 diabetes mellitus Current Visit: No Status: Chronic Assessment and plan: Fingerstick blood sugars have been 138 and 126. Continue as at present. (4) Iron deficiency anemia Current Visit: No Status: Chronic Assessment and plan: No evidence of ongoing bleed. His BUN may have bumped partially secondary to the GI bleed. (5) COPD (chronic obstructive pulmonary disease) Current Visit: No Status: Acute Assessment and plan: He is asymptomatic at present. Qualifiers: COPD type: COPD with acute exacerbation Qualified Code(s): J44.1 - Chronic obstructive pulmonary disease with (acute) exacerbation (6) CKD (chronic kidney disease) Current Visit: No Status: Chronic Assessment and plan: BUN increased from 37 and 46. Creatinine is still normal at 1.6 but is a little. Again he may have had some additional protein load from a GI bleed. More likely however is that this was a lower GI bleed. It appears to be self- limited. For now continue his current meds. We may need to back off on the diuresis some. Qualifiers: Chronic kidney disease stage: stage 3 (moderate) Qualified Code(s): N18.3 - Chronic kidney disease, stage 3 (moderate) (7) Inflammatory arthritis Current Visit: No Status: Acute Assessment and plan: Pain is well controlled. My exam shows no acute inflammation of the joints. (8) Physical deconditioning Current Visit: No Status: Acute Assessment and plan: He is making progress with therapy. Discharge home. He still has a ways to go functionally. (9) Hypokalemia Current Visit: No Status: Acute Assessment and plan: Potassium improved today from 2.8 to 3.0. Continue oral replacement. Magnesium was low normal at 1.6 so I will not supplement. - Time Spent With Patient 25 - 35 minutes - Subjective Interval history: The patient tells me that he is doing better today. He says he can walk on his own but he feels he is definitely improving with therapy. He tells me his pain is controlled. He denies shortness of breath or chest discomfort. He says he has a little swelling of his feet but it's much improved from before. He denies any blood in stool. He is following a water restriction but he doesn't like the taste of the tap water here at the hospital. - Constitutional Vitals: Blood pressures at goal. Temp Pulse Resp BP Pulse Ox 97.5 F L 62 18 120/82 93 11/10/16 13:33 11/10/16 13:33 11/10/16 13:33 11/10/16 13:33 11/10/16 13:33 General appearance: Present: A&O X 3, morbidly obese, pleasant, no acute distress, answers questions appropriately - Respiratory Respiratory exam: Present: CTAB. Absent: accessory muscle use (Lungs are clear today. Breath sounds are a little distant given his obesity.), rales, rhonchi, wheezes - Cardiovascular Cardiovascular exam: Present: irregular rhythm (Today his radial pulse is irregularly irregular. Heart sounds are little distant. There is no gallops murmurs or rubs appreciated.), +S1, +S2. Absent: diastolic murmur, gallop, rubs , systolic murmur - Extremities Exam Extremities exam: Present: pedal edema (He has mild pitting edema of the right foot, left foot less so. There is no pretibial edema on either side.), warm, radial pulses palpable and symetrical. Absent: calf tenderness, cyanotic - Other Additional findings: He is awake alert and pleasant. His nurse reports that he was a little bit confused last night as he could not recall the name of the city that he isn't now, but he's oriented 3 today. Internal Medicine: Result - Labs CBC & Chem 7: 11/09/16 04:40 11/10/16 05:00 Labs: BMP 11/10/16 05:00 Sodium 141 Potassium 3.0 L Chloride 93 L Carbon Dioxide 33 H BUN 46 H Creatinine 1.06 Glucose 138 H Calcium 9.0 - VTE Documentation of Mechanical Device: Venous foot pump, device Deep Vein Thrombosis/Pulmonary Embolism Present on Admission: No Consult Discharge Plan - Plan Referrals: Mildred Ernandez MD [Primary Care Provider] -
[2016-11-11] MEDS: *HR* Enoxaparin 40 MG/0.4 ML SYRINGE SQ SCH (05:02)
[2016-11-11] MEDS: *HR* OxyCODONE Immed Rel 5 MG TABLET PO PRN ×3 (05:03→14:34)
[2016-11-11 05:34] LABS: BUN/Creatinine Ratio 42 (6-26); Blood Urea Nitrogen 58 mg/dL (8-26); Calcium 9.3 mg/dL (8.6-10.8); Carbon Dioxide 27 mEq/L (19-29); Chloride 91 mEq/L (98-109); Glucose 260 mg/dL (70-99); Osmolality,Calculated 307 (280-300); Potassium 3.7 mEq/L (3.5-4.5); Sodium 136 mEq/L (136-145); eGFR For African Americans > 60 (> 60); eGFR For Non-African Americans 51 (> 60)
[2016-11-11] MEDS: Gabapentin 100 MG CAPSULE PO SCH ×3 (07:49→21:23)
[2016-11-11] MEDS: metOLazone 5 MG TABLET PO SCH (07:49)
[2016-11-11] MEDS: predniSONE 10 MG TABLET PO SCH (07:49)
[2016-11-11] MEDS: Furosemide 40 MG TABLET PO SCH ×3 (07:49→21:22)
[2016-11-11] MEDS: Diltiazem CD (24hr) 120 MG CAPSULE PO SCH (07:49)
[2016-11-11] MEDS: *HR* Metformin 500 MG TABLET PO SCH ×2 (07:49→17:42)
[2016-11-11] MEDS: Aspirin Enteric Coated 81 MG Tablet PO SCH (07:49)
[2016-11-11] MEDS: Isosorbide MONOnitrate (24 HR) 30 MG TAB.ER.24H PO SCH (07:50)
[2016-11-11] MEDS: *HR* GlipiZIDE 5 MG TABLET PO SCH (07:50)
[2016-11-11] MEDS: Colchicine 0.6 MG TABLET PO SCH ×2 (07:50→21:20)
[2016-11-11] MEDS: Budesonide/Formoterol 160/4.5 MDI IH SCH ×2 (07:59→21:30)
[2016-11-11] MEDS: Insulin DETEMIR 100 UNIT/ML X5UNITS SQ SCH ×2 (08:00→21:24)
[2016-11-11] MEDS: Insulin LISPRO 300 UNITS/3 ML VIAL SQ SCH ×3 (08:01→17:44)
--- NOTE | 2016-11-11 13:12 | Internal Med Progress Note ---
Date of Encounter: 11/11/16 Time of Encounter: 13:10 - Assessment and plan (1) Physical deconditioning Current Visit: No Status: Acute Assessment and plan: He is making progress with therapy. he is improving anticipate d/c if goals met. (2) Gout attack Current Visit: Yes Status: Acute Assessment and plan: He is making progress his pain is better he is getting up and ambulating well. We will continue with PT OT to increase ambulation continue allopurinol and colchicine and prednisone Qualifiers: Gout site: multiple sites Gout etiology: unspecified cause Qualified Code (s): M10.9 - Gout, unspecified (3) Atrial flutter Current Visit: No Status: Chronic Assessment and plan: Chronic no change he is not anticoagulated due to a GI bleed in the past. Currently rate controlled Qualifiers: Atrial flutter type: unspecified Qualified Code(s): I48.92 - Unspecified atrial flutter (4) Diabetes mellitus type 2, uncontrolled Current Visit: No Status: Chronic Assessment and plan: Sugar is better here with diet control and regular insulin doses that are not good at home when he does not take his insulin and does not follow his diabetic diet. Qualifiers: Diabetes mellitus complication detail: with nephropathy Diabetes mellitus moth exterminator insulin use: with usp use Qualified Code(s): E11.21 - Type 2 diabetes mellitus with diabetic nephropathy; E11.65 - Type 2 diabetes mellitus with hyperglycemia; Z79.4 - lobsterman (current) use of insulin (5) DVT prophylaxis Current Visit: No Status: Acute Assessment and plan: Lovenox (6) CAD (coronary artery disease) Current Visit: No Status: Chronic Qualifiers: Coronary Disease-Associated Artery/Lesion type: [place] artery [place] vs. transplanted heart: [place] heart Associated angina: with stable angina Qualified Code(s): I25.118 - Atherosclerotic heart disease of [place] coronary artery with other forms of angina pectoris (7) Asthma with COPD (chronic obstructive pulmonary disease) Current Visit: No Status: Chronic (8) CHF (congestive heart failure) Current Visit: No Status: Acute Assessment and plan: Stable no current symptoms he is on Lasix beta luisa and MARTINA inhibitor he does much better when his fluid is restricted and he is compliant with his medications. Qualifiers: Congestive heart failure type: combined Congestive heart failure chronicity : chronic Qualified Code(s): I50.42 - Chronic combined systolic (congestive) and diastolic (congestive) heart failure (9) Anemia Current Visit: No Status: Acute Assessment and plan: Has been stable continue iron Qualifiers: Anemia type: unspecified type Qualified Code(s): D64.9 - Anemia, unspecified (10) HTN (hypertension) Current Visit: No Status: Chronic Assessment and plan: Has been stable on home medicine Qualifiers: Hypertension type: essential hypertension Qualified Code(s): I10 - Essential (primary) hypertension (11) Hyperlipidemia Current Visit: No Status: Chronic Qualifiers: Hyperlipidemia type: mixed hyperlipidemia Qualified Code(s): E78.2 - Mixed hyperlipidemia (12) History of PTCA Current Visit: No Status: Chronic (13) Iron deficiency anemia Current Visit: No Status: Chronic Qualifiers: Iron deficiency anemia type: unspecified iron deficiency Qualified Code(s) : D50.9 - Iron deficiency anemia, unspecified (14) CKD (chronic kidney disease) Current Visit: No Status: Chronic Qualifiers: Chronic kidney disease stage: stage 3 (moderate) Qualified Code(s): N18.3 - Chronic kidney disease, stage 3 (moderate) - Subjective Interval history: he has been making progress. ambulating with the walker. getting up well. rehab thinks maybe / breathing is better. no cp. no dizzy, pain is much better. - Constitutional Vitals: Temp Pulse Resp BP Pulse Ox 97.4 F L 67 18 97/66 96 11/11/16 11:32 11/11/16 11:32 11/11/16 11:32 11/11/16 11:32 11/11/16 11:32 General appearance: Present: A&O X 3, morbidly obese, pleasant, no acute distress, answers questions appropriately - Head Head exam: Present: atraumatic, normocephalic - Neck Neck exam general surgery: Present: trachea midline - Respiratory Respiratory exam: Present: CTAB - Cardiovascular Cardiovascular exam: Present: irregular rhythm, systolic murmur - GI/Abdominal GI/Abdominal exam: Present: distended (baseline), normal bowel sounds. Absent: tenderness - Extremities Exam Extremities exam: Present: pedal edema (but much decreased) - Skin Skin exam: Present: dry, warm Internal Medicine: Result - Labs CBC & Chem 7: 11/09/16 04:40 11/11/16 05:10 Labs: [facility] 11/11/16 05:10 Sodium 136 Potassium 3.7 Chloride 91 L Carbon Dioxide 27 BUN 58 H D Creatinine 1.39 H Glucose 260 H Calcium 9.3 - VTE Documentation of Mechanical Device: Venous foot pump, device Deep Vein Thrombosis/Pulmonary Embolism Present on Admission: No Consult Discharge Plan - Plan Referrals: Mildred Ernandez MD [Primary Care Provider] -
[2016-11-12] MEDS: *HR* OxyCODONE Immed Rel 5 MG TABLET PO PRN ×4 (00:05→16:51)
[2016-11-12] MEDS: *HR* Enoxaparin 40 MG/0.4 ML SYRINGE SQ SCH (05:50)
[2016-11-12 06:27] LABS: BUN/Creatinine Ratio 49 (6-26); Blood Urea Nitrogen 59 mg/dL (8-26); Calcium 9.9 mg/dL (8.6-10.8); Carbon Dioxide 32 mEq/L (19-29); Chloride 89 mEq/L (98-109); Glucose 170 mg/dL (70-99); Osmolality,Calculated 309 (280-300); Potassium 3.2 mEq/L (3.5-4.5); Sodium 139 mEq/L (136-145); eGFR For African Americans > 60 (> 60); eGFR For Non-African Americans 60 (> 60)
[2016-11-12] MEDS: Diltiazem CD (24hr) 120 MG CAPSULE PO SCH (08:49)
[2016-11-12] MEDS: metOLazone 5 MG TABLET PO SCH (08:49)
[2016-11-12] MEDS: predniSONE 10 MG TABLET PO SCH (08:49)
[2016-11-12] MEDS: Furosemide 40 MG TABLET PO SCH ×3 (08:50→21:26)
[2016-11-12] MEDS: *HR* Metformin 500 MG TABLET PO SCH ×2 (08:50→16:51)
[2016-11-12] MEDS: Aspirin Enteric Coated 81 MG Tablet PO SCH (08:50)
[2016-11-12] MEDS: Gabapentin 100 MG CAPSULE PO SCH ×3 (08:50→21:27)
[2016-11-12] MEDS: Colchicine 0.6 MG TABLET PO SCH ×2 (08:51→21:25)
[2016-11-12] MEDS: *HR* GlipiZIDE 5 MG TABLET PO SCH (08:51)
[2016-11-12] MEDS: Isosorbide MONOnitrate (24 HR) 30 MG TAB.ER.24H PO SCH (08:51)
[2016-11-12] MEDS: Insulin DETEMIR 100 UNIT/ML X5UNITS SQ SCH ×2 (08:52→21:26)
[2016-11-12] MEDS: Budesonide/Formoterol 160/4.5 MDI IH SCH ×2 (08:58→21:30)
[2016-11-12] MEDS: Insulin LISPRO 300 UNITS/3 ML VIAL SQ SCH ×3 (08:59→16:52)
[2016-11-12] MEDS ORDERED: Insulin LISPRO 300 UNITS/3 ML VIAL SQ ONE (21:15)
[2016-11-13] MEDS: *HR* OxyCODONE Immed Rel 5 MG TABLET PO PRN ×4 (05:29→20:43)
[2016-11-13] MEDS: *HR* Enoxaparin 40 MG/0.4 ML SYRINGE SQ SCH (05:30)
[2016-11-13] MEDS: predniSONE 10 MG TABLET PO SCH (08:16)
[2016-11-13] MEDS: metOLazone 5 MG TABLET PO SCH (08:16)
[2016-11-13] MEDS: Colchicine 0.6 MG TABLET PO SCH ×2 (08:16→20:37)
[2016-11-13] MEDS: Diltiazem CD (24hr) 120 MG CAPSULE PO SCH (08:16)
[2016-11-13] MEDS: Gabapentin 100 MG CAPSULE PO SCH ×3 (08:16→20:39)
[2016-11-13] MEDS: Aspirin Enteric Coated 81 MG Tablet PO SCH (08:17)
[2016-11-13] MEDS: Furosemide 40 MG TABLET PO SCH ×3 (08:17→20:38)
[2016-11-13] MEDS: *HR* GlipiZIDE 5 MG TABLET PO SCH (08:17)
[2016-11-13] MEDS: Insulin LISPRO 300 UNITS/3 ML VIAL SQ SCH ×3 (08:17→17:27)
[2016-11-13] MEDS: Isosorbide MONOnitrate (24 HR) 30 MG TAB.ER.24H PO SCH (08:17)
[2016-11-13] MEDS: *HR* Metformin 500 MG TABLET PO SCH ×2 (08:17→17:27)
[2016-11-13] MEDS: Insulin DETEMIR 100 UNIT/ML X5UNITS SQ SCH ×2 (08:18→20:40)
[2016-11-13] MEDS: Budesonide/Formoterol 160/4.5 MDI IH SCH ×2 (08:18→20:41)
--- NOTE | 2016-11-13 12:35 | Physical Med Progress Note ---
Date of Encounter: 11/13/16 Time of Encounter: 12:32 Physical Medicine-PN: Subj Interval history: PMR PCC Note Patient is doing well. He is ambulating 250 feet with a wheeled walker with SBA. Patient has a history of noncompliance with his medications. He is mod I for ADLs. No significant issues with safety concerns. Plan for discharge to home on 11/14/16. - Constitutional Vitals: Vital Signs Temp Pulse Resp BP Pulse Ox 11/13/16 11:33 98.0 F 66 16 120/89 94 11/13/16 08:02 98.1 F 82 101/68 97 11/13/16 04:00 97.1 F L 60 18 103/61 98 11/13/16 00:00 97.3 F L 65 18 101/63 97 11/12/16 19:45 97.0 F L 73 20 105/65 94 11/12/16 15:00 98.2 F 64 12 104/69 96 Intake and Output 11/12/16 11/13/16 11/13/16 23:59 07:59 15:59 Intake Total 240 / 240 360 / 360 Output Total 900 / 900 2600 / 2600 300 / 300 Balance -660 / -660 -2600 / -2600 60 / 60 Intake: Oral 240 / 240 360 / 360 Output: Urine 900 / 900 2600 / 2600 300 / 300 Other: Meal Dinner Breakfast Percent of Meal Consumed 100% 100% Weight 114.124 kg Blood Glucose* 429 240 Patient Weight 11/13/16 23:59 Weight 114.124 kg Physical Medicine-PN: Obj Data - Labs CBC & Chem 7: 11/09/16 04:40 11/12/16 06:05 Labs: Laboratory Results - last 24 hr 11/12/16 11/12/16 11/12/16 07:35 11:23 16:26 POC Glucose 189 H 238 H 380 H 11/12/16 11/12/16 20:13 20:14 POC Glucose 430 H* 429 H* - VTE Documentation of Mechanical Device: Venous foot pump, device Deep Vein Thrombosis/Pulmonary Embolism Present on Admission: No Consult Discharge Plan - Plan Referrals: Mildred Ernandez MD [Primary Care Provider] -
--- NOTE | 2016-11-13 13:08 | Discharge Summary ---
Date of Encounter: 11/18/16 Time of Encounter: 13:00 - Discharge Diagnosis (1) Physical deconditioning Priority: Secondary Status: Acute Comments: He was transferred here from [facility] for a gout acute flare his allopurinol was raised from 100 mg to 300 mg she was given colchicine which he thinks he will be able to afford as an outpatient but I did discuss this could be very expensive. He was given a prednisone taper that will be continued as an outpatient he is improving from the ambulation standpoint he is able to walk up and down the halls with a walker now. Pain Is controlled. Discharged tomorrow with home health care. (2) Gout attack Priority: Primary Status: Acute Comments: His allopurinol was raised to 300 mg a day he was given colchicine as an outpatient we will see if he can afford this as an outpatient we will continue his steroid taper he has improved a great deal his pain is controlled he was given oxycodone acetaminophen for discharge. [facility] sent that home with him Qualifiers: Gout site: multiple sites Gout etiology: unspecified cause Qualified Code (s): M10.9 - Gout, unspecified (3) Atrial flutter Priority: Secondary Status: Chronic Comments: rate Controlled he is not anticoagulated due to a history of a GI bleed he is status post ablation but remains in A. fib. Qualifiers: Atrial flutter type: unspecified Qualified Code(s): I48.92 - Unspecified atrial flutter (4) Diabetes mellitus type 2, uncontrolled Priority: Secondary Status: Chronic Comments: Had some hyperglycemia episodes while here. He is on his insulin although his sugars are much better here than when they are at home due to the fact that his diet and his medications are regulated Qualifiers: Diabetes mellitus complication detail: with nephropathy Diabetes mellitus terminal press operator insulin use: with terminal press operator use Qualified Code(s): E11.21 - Type 2 diabetes mellitus with diabetic nephropathy; E11.65 - Type 2 diabetes mellitus with hyperglycemia; Z79.4 - senior care (current) use of insulin (5) DVT prophylaxis Priority: Secondary Status: Acute Comments: Lovenox and ambulation while he was here (6) CAD (coronary artery disease) Priority: Secondary Status: Chronic Comments: Been stable he was here is on his home beta luisa MARTINA inhibitor doing well from a coronary standpoint Qualifiers: Coronary Disease-Associated Artery/Lesion type: [place] artery [place] vs. transplanted heart: [place] heart Associated angina: with stable angina Qualified Code(s): I25.118 - Atherosclerotic heart disease of [place] coronary artery with other forms of angina pectoris (7) Asthma with COPD (chronic obstructive pulmonary disease) Priority: Secondary Status: Chronic Comments: His asthma has been stable on the home Symbicort and duo nebs. He is on home oxygen. (8) CHF (congestive heart failure) Priority: Secondary Status: Acute Comments: cHF has been stable with his fluid restrictions were here in the hospital and getting his Lasix on a daily basis and taking his medications. Qualifiers: Congestive heart failure type: combined Congestive heart failure chronicity : chronic Qualified Code(s): I50.42 - Chronic combined systolic (congestive) and diastolic (congestive) heart failure (9) Anemia Priority: Secondary Status: Acute Comments: has been stable he remains on by mouth iron Qualifiers: Anemia type: unspecified type Qualified Code(s): D64.9 - Anemia, unspecified (10) HTN (hypertension) Priority: Secondary Status: Chronic Comments: thIs has been stable on his home medications Qualifiers: Hypertension type: essential hypertension Qualified Code(s): I10 - Essential (primary) hypertension (11) Hyperlipidemia Priority: Secondary Status: Chronic Qualifiers: Hyperlipidemia type: mixed hyperlipidemia Qualified Code(s): E78.2 - Mixed hyperlipidemia (12) History of PTCA Priority: Secondary Status: Chronic (13) Iron deficiency anemia Priority: Secondary Status: Chronic Qualifiers: Iron deficiency anemia type: unspecified iron deficiency Qualified Code(s) : D50.9 - Iron deficiency anemia, unspecified (14) CKD (chronic kidney disease) Priority: Secondary Status: Chronic Comments: Has remained at baseline Qualifiers: Chronic kidney disease stage: stage 3 (moderate) Qualified Code(s): N18.3 - Chronic kidney disease, stage 3 (moderate) (15) Hypokalemia Priority: Secondary Status: Resolved Comments: Was found to be hypokalemic during admission he was given by mouth supplementation. - Discharge Medications Prescriptions: Allopurinol [Zyloprim 100 MG] 100 mg PO DAILY #30 tablet Colchicine [Colcrys] 0.6 mg PO BID #60 tablet Gabapentin [Neurontin] 200 mg PO TID #60 capsule OxyCODONE Immed Rel [Roxicodone 5 MG] 5 mg PO Q4H PRN #18 tablet PRN Reason: moderate or severe pain predniSONE [PredniSONE] 10 mg PO DAILY #50 tablet Home Medications: Insulin Human Regular [HumuLIN R] 40 unit SQ 0800,1700 #0 MDD With Breakfast and Dinner 09/12/15 [History] Isosorbide MONOnitrate (24 HR) [Imdur] 30 mg PO DAILY #0 09/12/15 [History] Ferrous Sulfate [Iron Supplement] 325 mg PO TID 12/25/15 [History] Aspirin [Lo-Dose Aspirin EC] 81 mg PO DAILY 03/22/16 [History] Insulin NPH/REG 70/30 [HumuLIN 70/30 VIAL] 80 unit SQ BIDWM 03/22/16 [History] Budesonide/Formoterol 160/4.5 [Symbicort 160/4.5] 2 puff IH BIDR 05/17/16 [ History] Diltiazem CD (24hr) [Cardizem CD] 120 mg PO DAILY 05/17/16 [History] Metoprolol [Lopressor] 50 mg PO BID 05/17/16 [History] Nitroglycerin [Nitrostat] 0.4 mg SL Q5M PRN 05/17/16 [History] Pantoprazole Sodium [Protonix] 40 mg PO DAILY 05/17/16 [History] Potassium Chloride [K-Tab ER] 20 meq PO TID 05/17/16 [History] glipiZIDE [Glipizide] 10 mg PO DAILY 05/17/16 [History] metFORMIN [Glucophage] 500 mg PO BIDWM 05/17/16 [History] metOLazone [Metolazone] 10 mg PO DAILY 05/17/16 [History] Buspirone HCl [Buspar] 10 mg PO BID 08/06/16 [History] Montelukast Sodium [Singulair] 10 mg PO HS 08/06/16 [History] Oxygen 4 l .ROUTE AD 09/18/16 [History] Atorvastatin [Lipitor] 80 mg PO HS tablet 09/21/16 [Rx] Lisinopril [Zestril] 2.5 mg PO DAILY 09/28/16 [History] Albuterol Sulfate [Albuterol Inhaler] 2 puff IH Q4H 09/29/16 [History] Ipratropium/Albuterol Neb [Duoneb] 3 ml IH Q4HR PRN 09/29/16 [History] Insulin LISPRO [HumaLOG] 10 units SQ TIDWM 10/07/16 [History] Furosemide [Lasix] 80 mg PO TID 11/08/16 [History] Acetaminophen [Tylenol] 500 mg PO Q6HR PRN #0 tablet 11/13/16 [Rx] Allopurinol [Zyloprim 100 MG] 100 mg PO DAILY #30 tablet 11/13/16 [Rx] Colchicine [Colcrys] 0.6 mg PO BID #60 tablet 11/13/16 [Rx] Gabapentin [Neurontin] 200 mg PO TID #60 capsule 11/13/16 [Rx] OxyCODONE Immed Rel [Roxicodone 5 MG] 5 mg PO Q4H PRN #18 tablet 11/13/16 [Rx] predniSONE [PredniSONE] 10 mg PO DAILY #50 tablet 11/13/16 [Rx] Allergies/Adverse Reactions: Allergies No Known Allergies Allergy (Verified 11/04/16 09:26) Date of admission: 11/08/16 17:04 Primary care physician: Mildred Ernandez, Consults: 11/08/16 19:02 Consult to Occupational Therapy [CONS] Routine Comment: Evaluate, develop and implement POC Reason for Consult: deconditioning after gout Consult to Physical Therapy [CONS] Routine Comment: Evaluate, develop and implement POC Reason for Consult: deconditioning after gout Consult to Recreational Therapy [CONS] Routine Comment: Evaluate, develop and implement POC - Patient Status Disposition: Home Health Service Condition: Good Functional capacity at discharge: uses cane/walker Overall status at discharge: patient is progressing back to baseline - Discharge Instructions Instructions: Heart Failure (DC), Atrial Fibrillation (DC), Asthma (DC), Diabetes Mellitus Type 2 in Adults (DC), Chronic Hypertension (DC), Anemia (GEN) Follow Up With: Mildred Ernandez MD [Primary Care Provider] - 11/18/16 3:00 pm - Diet and Activity Activity: increase activity as tolerated Interval History: He was transferred from [facility] after acute gout exacerbation and deconditioning he was unable to walk when he came here he did PT OT RT he was able to ambulate the halls with a walker his pain was controlled his allopurinol was increased from 1 mg to 300 mg and colchicine and prednisone taper was added he is improving he is met his discharge goals he is felt safe for discharge she will be discharged tomorrow. He has chronic problems of CHF and type 2 diabetes that are not controlled well as an outpatient due to his noncompliance. He falces going to do better with watching his fluids watching his diet and taking his medications on a regular basis. His coronary artery disease his lipids and renal insufficiency and iron deficiency anemia all remained stable while he was admitted Hospital course: Mr. Anguiano is a 66 year old male - Time Spent with Patient Total time spent providing and/or coordinating discharge services: - Constitutional Vitals: Temp Pulse Resp BP Pulse Ox 98.0 F 66 16 120/89 94 11/13/16 11:33 11/13/16 11:33 11/13/16 11:33 11/13/16 11:33 11/13/16 11:33 General appearance: Present: A&O X 3, morbidly obese, pleasant, no acute distress, answers questions appropriately - Head Head exam: Present: atraumatic, normocephalic - Neck Neck exam general surgery: Present: trachea midline. Absent: tenderness - Respiratory Respiratory exam: Present: CTAB - Cardiovascular Cardiovascular exam: Present: irregular rhythm. Absent: systolic murmur - GI/Abdominal GI/Abdominal exam: Present: distended, no peritoneal signs. Absent: guarding, tenderness - Extremities Exam Extremities exam: Present: normal capillary refill, warm. Absent: pedal edema - Skin Skin exam: Present: dry, warm. Absent: rash - VTE Documentation of Mechanical Device: Venous foot pump, device Deep Vein Thrombosis/Pulmonary Embolism Present on Admission: No
--- NOTE | 2016-11-13 17:55 | Physician Discharge Referral ---
Home Health/Hosp Referral Info Transfer to: Home Health Provider in Charge Post Discharge: PCP - Diagnosis (1) Physical deconditioning Priority: Primary Status: Acute (2) Gout attack Priority: Secondary Status: Acute (3) Atrial flutter Priority: Secondary Status: Chronic (4) Diabetes mellitus type 2, uncontrolled Priority: Secondary Status: Chronic (5) DVT prophylaxis Priority: Secondary Status: Acute (6) CAD (coronary artery disease) Priority: Secondary Status: Chronic (7) Asthma with COPD (chronic obstructive pulmonary disease) Priority: Secondary Status: Chronic (8) CHF (congestive heart failure) Priority: Secondary Status: Acute (9) Anemia Priority: Secondary Status: Acute (10) HTN (hypertension) Priority: Secondary Status: Chronic (11) Hyperlipidemia Priority: Secondary Status: Chronic (12) History of PTCA Priority: Secondary Status: Chronic (13) Iron deficiency anemia Priority: Secondary Status: Chronic (14) CKD (chronic kidney disease) Priority: Secondary Status: Chronic (15) Hypokalemia Priority: Secondary Status: Resolved - Respiratory Orders Oxygen / L per min Smoking Cessation: Smoking cessation has been advised. For more information, call the [place] Tobacco Quit Line at 6-344-QPCY-NOW. - Diet/Nutrition Diet/Nutrition Orders: No Concentrated Sweets - Activity Activity Orders: Up ad antoinette, Ambulate, Walker - Services Needed Following services are medically necessary services: Home Health Aide, Physical Therapy, Occupational Therapy - Transfer Medications Prescriptions: Allopurinol [Zyloprim 100 MG] 100 mg PO DAILY #30 tablet Colchicine [Colcrys] 0.6 mg PO BID #60 tablet Gabapentin [Neurontin] 200 mg PO TID #60 capsule OxyCODONE Immed Rel [Roxicodone 5 MG] 5 mg PO Q4H PRN #18 tablet PRN Reason: moderate or severe pain predniSONE [PredniSONE] 10 mg PO DAILY #50 tablet Home Medications: Insulin Human Regular [HumuLIN R] 40 unit SQ 0800,1700 #0 MDD With Breakfast and Dinner 09/12/15 [History] Isosorbide MONOnitrate (24 HR) [Imdur] 30 mg PO DAILY #0 09/12/15 [History] Ferrous Sulfate [Iron Supplement] 325 mg PO TID 12/25/15 [History] Aspirin [Lo-Dose Aspirin EC] 81 mg PO DAILY 03/22/16 [History] Insulin NPH/REG 70/30 [HumuLIN 70/30 VIAL] 80 unit SQ BIDWM 03/22/16 [History] Budesonide/Formoterol 160/4.5 [Symbicort 160/4.5] 2 puff IH BIDR 05/17/16 [ History] Diltiazem CD (24hr) [Cardizem CD] 120 mg PO DAILY 05/17/16 [History] Metoprolol [Lopressor] 50 mg PO BID 05/17/16 [History] Nitroglycerin [Nitrostat] 0.4 mg SL Q5M PRN 05/17/16 [History] Pantoprazole Sodium [Protonix] 40 mg PO DAILY 05/17/16 [History] Potassium Chloride [K-Tab ER] 20 meq PO TID 05/17/16 [History] glipiZIDE [Glipizide] 10 mg PO DAILY 05/17/16 [History] metFORMIN [Glucophage] 500 mg PO BIDWM 05/17/16 [History] metOLazone [Metolazone] 10 mg PO DAILY 05/17/16 [History] Buspirone HCl [Buspar] 10 mg PO BID 08/06/16 [History] Montelukast Sodium [Singulair] 10 mg PO HS 08/06/16 [History] Oxygen 4 l .ROUTE AD 09/18/16 [History] Atorvastatin [Lipitor] 80 mg PO HS tablet 09/21/16 [Rx] Lisinopril [Zestril] 2.5 mg PO DAILY 09/28/16 [History] Albuterol Sulfate [Albuterol Inhaler] 2 puff IH Q4H 09/29/16 [History] Ipratropium/Albuterol Neb [Duoneb] 3 ml IH Q4HR PRN 09/29/16 [History] Insulin LISPRO [HumaLOG] 10 units SQ TIDWM 10/07/16 [History] Furosemide [Lasix] 80 mg PO TID 11/08/16 [History] Acetaminophen [Tylenol] 500 mg PO Q6HR PRN #0 tablet 11/13/16 [Rx] Allopurinol [Zyloprim 100 MG] 100 mg PO DAILY #30 tablet 11/13/16 [Rx] Colchicine [Colcrys] 0.6 mg PO BID #60 tablet 11/13/16 [Rx] Gabapentin [Neurontin] 200 mg PO TID #60 capsule 11/13/16 [Rx] OxyCODONE Immed Rel [Roxicodone 5 MG] 5 mg PO Q4H PRN #18 tablet 11/13/16 [Rx] predniSONE [PredniSONE] 10 mg PO DAILY #50 tablet 11/13/16 [Rx] Allergies/Adverse Reactions: Allergies No Known Allergies Allergy (Verified 11/04/16 09:26) Certification: Further, I certify that my clinical findings support that this patient is homebound (i.e. absences from home require considerable and taxing effort and are for medical reasons or denominational services or infrequently or short duration when for other reasons) because: His recent hospitalization for an acute gout attack where he was unable to ambulate and physical deconditioning and he is now requiring a walker to get around and it is great efforts to get out of the house Homebound Reason: Patient requires assistance of a person or device to safely leave home, Leaving home requires considerable and taxing effort due to condition Attestation: My signature below is to certify that this patient is under my care and that I, or nurse practitioner, or a physician's engineer first assistant working with me, has a face-to -face encounter with this patient.
[2016-11-13] MEDS ORDERED: Insulin LISPRO 300 UNITS/3 ML VIAL SQ ONE (21:00)
[2016-11-14] MEDS: *HR* Enoxaparin 40 MG/0.4 ML SYRINGE SQ SCH (05:08)
[2016-11-14] MEDS: *HR* OxyCODONE Immed Rel 5 MG TABLET PO PRN ×3 (05:08→15:49)
[2016-11-14] MEDS: *HR* GlipiZIDE 5 MG TABLET PO SCH (07:54)
[2016-11-14] MEDS: Isosorbide MONOnitrate (24 HR) 30 MG TAB.ER.24H PO SCH (07:55)
[2016-11-14] MEDS: Diltiazem CD (24hr) 120 MG CAPSULE PO SCH (07:55)
[2016-11-14] MEDS: Colchicine 0.6 MG TABLET PO SCH (07:55)
[2016-11-14] MEDS: Aspirin Enteric Coated 81 MG Tablet PO SCH (07:55)
[2016-11-14] MEDS: *HR* Metformin 500 MG TABLET PO SCH (07:55)
[2016-11-14] MEDS: Gabapentin 100 MG CAPSULE PO SCH ×2 (07:55→15:49)
[2016-11-14] MEDS: Furosemide 40 MG TABLET PO SCH ×2 (07:56→15:49)
[2016-11-14] MEDS: predniSONE 10 MG TABLET PO SCH (07:56)
[2016-11-14] MEDS: metOLazone 5 MG TABLET PO SCH (07:56)
[2016-11-14] MEDS: Budesonide/Formoterol 160/4.5 MDI IH SCH (07:57)
[2016-11-14] MEDS: Insulin DETEMIR 100 UNIT/ML X5UNITS SQ SCH (08:03)
[2016-11-14] MEDS: Insulin LISPRO 300 UNITS/3 ML VIAL SQ SCH ×2 (08:03→12:18)
[2016-11-15 11:43] VITALS: BP 143/76
== END 2016-11-14 16:16 | disposition home health service (06) | DRG 556 ==
LOC: INPGRE 17:04
PROVIDERS: ADMIT Family Medicine; ATTEND Family Medicine